=== PATIENT | female | born 1995 | race Caucasian/White ===

== ENCOUNTER 2022-05-05 06:01 | Inpatient (IN) ==
[2022-05-05] MEDS ORDERED: PITOCIN ONE (06:31)
[2022-05-05] MEDS ORDERED: BETADINE SOLN ONE (06:31)
[2022-05-05] MEDS ORDERED: D5 1/2 NS 1,000 ML 1,000 ML IV ONE (06:31)
[2022-05-05] MEDS ORDERED: D5 1/2 NS 1,000 mL + PITOCIN 20 UNITS/L IV 20 UNITS/1,000 ML BAG IV ONE (06:32)
[2022-05-05] MEDS ORDERED: D5 LR + PITOCIN 10 UNITS/L 10 UNITS/1,000 ML BAG IV ONE (06:32)
--- NOTE | 2022-05-05 06:59 | DR.OB ---
OB Quick Note - Assessment/Plan Assessment/Plan: L&D 05/05/22 at 6:50am S-No complaint. O-Afebrile,VSS RKF=462 with good LTV, +accel, no decel. CTX=none CVX=2cm/50%/-1/VTX AROM with clear fluid. IUPC and FSE placed. A-IUP at 38 6/7 weeks for induction Seizure D/O P-Begin pitocin induction Anticipate
[2022-05-05] MEDS ORDERED: PITOCIN IVP ONE (07:14)
[2022-05-05] MEDS ORDERED: PHENERGAN INJ 25 MG IM PRN ×2 (07:14→15:43)
[2022-05-05] MEDS ORDERED: D5 1/2 NS 1,000 ML 1,000 ML IV SCH (07:14)
[2022-05-05] MEDS ORDERED: REGLAN INJ 10 MG VIAL IVP PRN (07:14)
[2022-05-05] MEDS ORDERED: MORPHINE SULFATE INJ 2 MG INJ IVP PRN (07:14)
[2022-05-05] MEDS ORDERED: D5 LR + PITOCIN 10 UNITS/L 10 UNITS/1,000 ML BAG IV PRN (07:14)
[2022-05-05] MEDS ORDERED: NUBAIN INJ 200 MG VIAL MULTIDOSE IVP PRN (07:14)
[2022-05-05] MEDS ORDERED: STADOL INJ IVP PRN (07:15)
--- NOTE | 2022-05-05 12:02 | DR.OB ---
OB Quick Note - Assessment/Plan Assessment/Plan: L&D 05/05/22 at 11:55am Pitocin=14mu/min. S-No complaint except CTX pain. O-Afebrile,VSS LAX=542 wtih good LTV, +accel, no decel. CTX=q 1 1/2 min., about 45-55mmHg CVX=5cm/75%/-1 A-IUP at 38 6/7 weeks for induction Seizure d/o P-Cont. pitocin induction Anticipate
[2022-05-05] MEDS ORDERED: STADOL INJ ONE (14:21)
--- NOTE | 2022-05-05 15:43 | DR.OB ---
OB Quick Note - Assessment/Plan Assessment/Plan: Delivery Note FIELD ATTENDANT 05/05/22 at 3:27pm Patient complete and pushing. Head delivered over intact perineum. No nuchal cord. Nose and mouth bulb suctioned. Body delivered over intact perineum. Cord clamped x 2 and cut. handed to attendant. Cord sent for gases. Placenta delivered spontaneously / intact / 3 vessel cord. No CVX / vaginal / perineal tears. Viable male , VTX/OA, wt=7'10" and 8/9, stable to NBN. Mother stable to RR. YTI=063ht.
[2022-05-05] MEDS ORDERED: MOTRIN TAB 800 MG PO ONE (15:57)
[2022-05-05] MEDS ORDERED: DERMOPLAST PAIN RELIEF SPRAY ONE (16:07)
[2022-05-05] MEDS ORDERED: DERMOPLAST PAIN RELIEF SPRAY TOP PRN (16:33)
[2022-05-05] MEDS ORDERED: ADACEL or BOOSTRIX TDaP VACCINE IM ONE (16:33)
[2022-05-05] MEDS ORDERED: MILK OF MAGNESIA PO PRN (16:33)
[2022-05-05] MEDS ORDERED: AMBIEN PO PRN (16:33)
[2022-05-05] MEDS: D5 1/2 NS 1,000 ML 1,000 ML with PITOCIN 20 UNITS IV SCH ×2 (16:40)
[2022-05-05] MEDS: KEPPRA TAB 500 MG PO SCH (20:54)
[2022-05-05] MEDS: MOTRIN TAB 800 MG PO PRN (23:45)
[2022-05-06] MEDS: D5 1/2 NS 1,000 ML 1,000 ML with PITOCIN 20 UNITS IV SCH ×4 (02:44→08:26)
[2022-05-06 05:18] LABS: HEMATOCRIT 28.1 % (36.0-47.0); HEMOGLOBIN 9.7 g/dL (12.0-16.0)
[2022-05-06] MEDS: KEPPRA TAB 500 MG PO SCH (08:06)
[2022-05-06] MEDS: MOTRIN TAB 800 MG PO PRN (08:09)
[2022-05-06] MEDS ORDERED: PROTONIX TAB 40 MG PO SCH (09:00)
[2022-05-06] MEDS ORDERED: PRENATAL PLUS PO SCH (09:00)
[2022-05-06 17:03] VITALS: BP 104/58
== END 2022-05-06 17:25 | disposition home or self-care (01) | DRG 806 ==
LOC: LD 06:01 → MED/SURG 16:35
PROVIDERS: ADMIT Specialist; ATTEND Specialist
DX: Z20.822 Contact with and (suspected) exposure to COVID-19; Z01.818 Encounter for other preprocedural examination; Z37.0 Single live birth; G40.802 Other epilepsy, not intractable, without status epilepticus; K21.9 Gastro-esophageal reflux disease without esophagitis; Z3A.38 38 weeks gestation of pregnancy; Z01.812 Encounter for preprocedural laboratory examination; O99.613 Diseases of the digestive system complicating pregnancy, third trimester; O99.353 Diseases of the nervous system complicating pregnancy, third trimester